=== PATIENT | female | born 1970 | race African-American/Black ===

== ENCOUNTER 2018-02-19 19:44 | Emergency (ER) | payer MEDICAID ==
[~2018-02-19] VITALS: Ht 160 cm; Wt 73.0 kg
[2018-02-19] MEDS ORDERED: HYDROCODONE/ACETAMINOPHEN 5/325MG TABLET PO ONE (20:30)
[2018-02-19 22:30] VITALS: BP 122/68
== END 2018-02-20 00:55 | disposition home or self-care (01) ==
LOC: ER 19:44
DX: S09.8XXA Other specified injuries of head, initial encounter (principal); S20.219A Contusion of unspecified front wall of thorax, initial encounter; S80.02XA Contusion of left knee, initial encounter; S00.83XA Contusion of other part of head, initial encounter; F17.200 Nicotine dependence, unspecified, uncomplicated; F10.20 Alcohol dependence, uncomplicated; Y08.89XA Assault by other specified means, initial encounter; Y93.89 Activity, other specified; Y92.9 Unspecified place or not applicable
CPT/HCPCS: 70450; 70486; 71111; 72100; 73560; 99284

== ENCOUNTER 2018-12-09 15:07 | Emergency (ER) | payer MEDICAID, OTHER ==
[~2018-12-09] VITALS: Ht 167.6 cm; Wt 64.0 kg
[2018-12-09] MEDS ORDERED: IBUPROFEN 800MG TABLET PO ONE (15:45)
[2018-12-09 16:23] VITALS: BP 158/106
== END 2018-12-09 16:24 | disposition home or self-care (01) ==
LOC: ER 15:07
DX: H60.13 Cellulitis of external ear, bilateral (principal)
CPT/HCPCS: 99283

== ENCOUNTER 2019-05-10 13:16 | Emergency (ER) | payer MEDICAID, OTHER ==
[~2019-05-10] VITALS: Ht 160 cm; Wt 75.0 kg
[2019-05-10 15:30] VITALS: BP 162/100
== END 2019-05-10 15:40 | disposition home or self-care (01) ==
LOC: ER 14:12
DX: L30.9 Dermatitis, unspecified (principal); R03.0 Elevated blood-pressure reading, without diagnosis of hypertension; F12.90 Cannabis use, unspecified, uncomplicated
CPT/HCPCS: 99283